=== PATIENT | male | born 1995 | race African-American/Black ===

== ENCOUNTER 2021-05-06 12:32 | Emergency (ER) | payer SELFPAY ==
[~2021-05-06] VITALS: Ht 190.5 cm; Wt 182.3 kg
[2021-05-06 14:53] VITALS: BP 150/81
[2021-05-06] MEDS ORDERED: KETOROLAC TROMETH 60MG/2ML VIAL IM ONE (15:45)
== END 2021-05-06 16:05 | disposition home or self-care (01) ==
LOC: ER 12:32
DX: S33.5XXA Sprain of ligaments of lumbar spine, initial encounter (principal); X58.XXXA Exposure to other specified factors, initial encounter; Y93.89 Activity, other specified; Y92.89 Other specified places as the place of occurrence of the external cause; Y99.8 Other external cause status
CPT/HCPCS: 72100; 81002; 96372; 99283; J1885

== ENCOUNTER 2021-06-15 21:34 | Emergency (ER) | payer SELFPAY ==
[~2021-06-15] VITALS: Ht 190.5 cm; Wt 181.4 kg
[2021-06-15 23:07] VITALS: BP 144/100
== END 2021-06-15 23:44 | disposition home or self-care (01) ==
LOC: ER 21:35
DX: J03.80 Acute tonsillitis due to other specified organisms (principal); B96.89 Other specified bacterial agents as the cause of diseases classified elsewhere; E66.9 Obesity, unspecified; Z68.43 Body mass index [BMI] 50.0-59.9, adult; Z90.89 Acquired absence of other organs

== ENCOUNTER 2022-11-19 02:54 | Emergency (ER) | payer MEDICAID, OTHER ==
[~2022-11-19] VITALS: Ht 190.5 cm; Wt 177.2 kg
[2022-11-19 03:16] VITALS: BP 171/93
[2022-11-19] MEDS ORDERED: CIPRSUS OT (04:38)
[2022-11-20] MEDS ORDERED: AUG875T PO (08:48)
== END 2022-11-19 04:50 | disposition home or self-care (01) ==
LOC: ER 02:54
DX: H60.91 Unspecified otitis externa, right ear (principal)